=== PATIENT | male | born 1975 | race Caucasian/White ===

== ENCOUNTER 2021-12-22 06:55 | Day surgery (SDC) | payer BC ==
[2021-12-22] MEDS ORDERED: Propofol 200 MG/20 ML SDV ONE (07:20)
[2021-12-22] MEDS ORDERED: Midazolam 1 MG/ML 2 ML SDV ONE (07:20)
[2021-12-22] MEDS ORDERED: fentaNYL 100 MCG/2 ML SDV ONE (07:20)
[2021-12-22] MEDS ORDERED: Sodium Chloride 0.9% 1,000 ML IV SCH (07:30)
== END 2021-12-22 09:46 | disposition home or self-care (01) ==
LOC: JP.SDS 06:55
PROVIDERS: ATTEND Surgery
DX: K22.2 Esophageal obstruction (principal); K20.90 Esophagitis, unspecified without bleeding; I10 Essential (primary) hypertension; E78.5 Hyperlipidemia, unspecified; E10.9 Type 1 diabetes mellitus without complications
CPT/HCPCS: 88305; J2250; J2704; J3010; J7030